=== PATIENT | female | born 1985 | race Hispanic/Latino ===

== ENCOUNTER 2023-07-14 11:01 | Observation (INO) | payer OTHER, SELFPAY ==
[2023-07-14 11:15] LABS: #Monocytes 0.4 thou/uL (0.11-0.59); %Basophils 0.4 % (0.0-1.0); %Eosinophils 0.5 % (0.0-10.0); %Lymphocytes 21.5 % (21.0-51.0); %Monocytes 7.7 % (0.0-10.0); %Neutrophils 69.5 % (42.0-75.0); Hematocrit 41.5 % (36.0-47.0); Hemoglobin 14.3 g/dL (12.0-16.0); Mean Corpuscular HGB CONC 34.5 g/dL (32.0-36.0); Mean Corpuscular Hemoglobin 32.2 pg (27.0-31.0); Mean Corpuscular Volume 93.5 fl (78.0-98.0); Mean Platelet Volume 9.6 fL (7.4-10.4); Platelet Count 228 10x3/uL (130-400); RBC Distribution Width 12.2 % (11.5-14.5); Red Blood Cell (RBC) Count 4.44 mill/uL (4.20-5.40); White Blood Cell (WBC) Count 5.7 10x3/uL (4.8-10.8)
[2023-07-14 11:32] LABS: PTT 36.8 sec (22.9-36.1)
[2023-07-14 11:46] LABS: ALT (SGPT) 10 U/L (8-55); AST (SGOT) 15 U/L (5-34); Albumin 4.5 g/dL (3.5-5.0); Alkaline Phosphatase 40 U/L (40-110); Anion Gap 12 mmol/L (10-20); BUN (Urea Nitrogen) 8 mg/dL (7.0-18.7); Bilirubin, Total 0.7 mg/dL (0.2-1.2); Calc. Creatinine Clearance 0 mL/min (70-130); Calcium 9.7 mg/dL (7.8-10.44); Carbon Dioxide 28 mmol/L (22-29); Chloride 102 mmol/L (98-107); Estimated GFR 91; Globulin 2.9 g/dL (2.4-3.5); Glucose 83 mg/dL (70-105); Potassium 4.4 mmol/L (3.5-5.1); Protein, Total 7.4 g/dL (6.0-8.3); Sodium 138 mmol/L (136-145)
[2023-07-14 11:48] LABS: Troponin I Less than 0.010 ng/mL (< 0.028)
[2023-07-14] MEDS ORDERED: Iopamidol-370 76% 500 ML MDV (1 ML CHARGE) ONE (12:51)
[2023-07-14 13:25] LABS: BHCG - Serum Negative (NEGATIVE); Pregs Control Background? CLEAR/WHITE (CLR/WHITE); Pregs Control Bar Appear? YES (CONTROL BAR)
[2023-07-14] MEDS ORDERED: Acetaminophen 325 MG TAB PO PRN (13:38)
[2023-07-14] MEDS ORDERED: hydrALAZINE 20 MG/ML VIAL SLOW IVP PRN (13:38)
[2023-07-14] MEDS ORDERED: Fioricet 325/50/40 mg Tablet PO PRN (13:52)
[2023-07-14] MEDS ORDERED: Aspirin 325 MG TAB ONE (13:52)
[2023-07-14 18:45] VITALS: BMI 31.0
[2023-07-14] MEDS: diphenhydrAMINE 50 MG/ML VIAL IVP SCH ×2 (19:06→21:57)
[2023-07-14] MEDS: Prochlorperazine Edisylate 10 MG in Sodium Chloride 0.9% 50 ML IVPB SCH ×2 (19:06→21:58)
[2023-07-15] MEDS: diphenhydrAMINE 50 MG/ML VIAL IVP SCH ×2 (03:41→10:46)
[2023-07-15] MEDS: Prochlorperazine Edisylate 10 MG in Sodium Chloride 0.9% 50 ML IVPB SCH ×2 (03:41→10:46)
[2023-07-15 05:27] LABS: Cardiac Risk 3.8 (Less than 4.5)
[2023-07-15 06:19] LABS: Amphetamine Not Detected (NotDetected); Barbiturates Screen Detected (NotDetected); Benzodiazepine Screen Not Detected (NotDetected); Cocaine Metabolite Screen Not Detected (NotDetected); Methadone Not Detected (NotDetected); Methamphetamine Not Detected (NotDetected); Opiate Screen Not Detected (NotDetected); Oxycodone Screen Not Detected (NotDetected); Phencyclidine (PCP) Not Detected (NotDetected); THC/Cannabinoid Screen Not Detected (NotDetected); Tricyclic Screen Not Detected (NotDetected)
[2023-07-15] MEDS ORDERED: Sodium Chloride 0.9% 1,000 ML IV SCH ×2 (08:00→09:00)
[2023-07-15] MEDS ORDERED: Aspirin 81 mg Enteric Coated Tablet PO SCH (09:00)
[2023-07-15] MEDS ORDERED: Lidocaine 4% Patch TD SCH ×2 (11:08→11:15)
[2023-07-15 11:20] LABS: Anion Gap 10 mmol/L (10-20); BUN (Urea Nitrogen) 10 mg/dL (7.0-18.7); Calc. Creatinine Clearance 103 mL/min (70-130); Calcium 8.8 mg/dL (7.8-10.44); Carbon Dioxide 25 mmol/L (22-29); Chloride 106 mmol/L (98-107); Estimated GFR 95; Glucose 116 mg/dL (70-105); Potassium 3.7 mmol/L (3.5-5.1); Sodium 137 mmol/L (136-145)
[2023-07-15 12:00] VITALS: TEMP 98.2
[2023-07-15 12:39] VITALS: BP 115/67
[2023-07-15] MEDS ORDERED: Transdermal Patch Removal TOP SCH (21:00)
[2023-07-16] MEDS ORDERED: Lidocaine 4% Patch TD SCH (09:00)
== END 2023-07-15 16:26 ==
LOC: ERS 11:01 → ERHOLD 13:06 → EEVIPCON 13:06 → 2SE 18:19
PROVIDERS: ADMIT Family Medicine; ATTEND Family Medicine
DX: G43.909 Migraine, unspecified, not intractable, without status migrainosus (principal); R53.1 Weakness; R20.0 Anesthesia of skin; Z90.49 Acquired absence of other specified parts of digestive tract; Z79.82 Long term (current) use of aspirin; Z79.899 Other long term (current) drug therapy
CPT/HCPCS: 36415; 36416; 70450; 70496; 70498; 70544; 70551; 80048; 80053; 80061; 80306; 84443; 84484; 84703; 85025; 85610; 85730; 93005; 94760; 96374; 96375; 96376; G0378; J0780; J1200; J7050; Q9967

== ENCOUNTER 2024-02-15 08:38 | Outpatient (CLI) | payer OTHER | END 2024-02-15 08:39 | disposition home or self-care (01) | LOC: BICMAMMO 08:38 | PROVIDERS: ATTEND Nurse Practitioner Family | DX: Z12.31 Encounter for screening mammogram for malignant neoplasm of breast (principal); N64.89 Other specified disorders of breast; Z80.3 Family history of malignant neoplasm of breast | CPT/HCPCS: 77067 ==

== ENCOUNTER 2024-04-20 08:27 | Outpatient (CLI) | payer OTHER | END 2024-04-20 08:28 | disposition home or self-care (01) | LOC: BICMAMMO 08:27 | PROVIDERS: ATTEND Family Medicine | DX: N64.89 Other specified disorders of breast (principal) | CPT/HCPCS: G0279 ==